=== PATIENT | male | born 1985 | race American Indian/Alaskan Native ===

== ENCOUNTER 2018-12-06 11:01 | Emergency (ER) | payer MEDICARE ==
--- NOTE | 2018-12-06 11:24 | Emergency Department Report ---
Blank Doc - Documentation Documentation: This is a 33-year-old male that presents with left wrist and hand pain s/p fall. This initial assessment/diagnostic orders/clinical plan/treatment(s) is/are subject to change based on patient's health status, clinical progression and re- assessment by fellow clinical providers in the ED. Further treatment and workup at subsequent clinical providers discretion. Patient/guardians urged not to elope from the ED as their condition may be serious if not clinically assessed a nd managed. Initial orders include: 1- Patient sent to [facility] for further evaluation and treatment 2- xrays
[2018-12-06 11:27] VITALS: BP 131/85
--- NOTE | 2018-12-06 12:42 | XRay Report ---
Left wrist, 4 views INDICATION: Left wrist pain after fall. COMPARISON: None. IMPRESSION: No acute osseous or soft tissue abnormality. No significant DJD. Left hand, 3 views INDICATION: Left hand pain after fall. COMPARISON: None. IMPRESSION: No acute osseous or soft tissue abnormality. No significant DJD. Signer Name: Sami Moreno Jr, MD Signed: 12/06/2018 12:38 PM Workstation Name: [id number]
[2018-12-06 12:58] LABS: Hematocrit 34.9 % (35.5-45.6); Hemoglobin 11.5 gm/dl (11.8-15.2); Mean Corpuscular HGB Conc 33 % (32-34); Mean Corpuscular Volume 89 fl (84-94); Platelet Count 207 K/mm3 (140-440); Red Blood Count 3.95 M/mm3 (3.65-5.03)
[2018-12-06 13:28] LABS: BUN/Creatinine Ratio 9; Blood Urea Nitrogen 10 mg/dL (9-20); Calcium 10.1 mg/dL (8.4-10.2); Hemolysis Index 23
[2018-12-06 15:22] LABS: Basophils % (Manual) 0 % (0.0-1.8); Total Cells Counted 100
[2018-12-06 15:25] LABS: Anisocytosis Few; Platelet Estimate Consistent w Auto
--- NOTE | 2018-12-06 17:10 | Emergency Department Report ---
ED Psych HPI - General Chief Complaint: Psych Stated Complaint: MED REFILL/LFT HAND PAIN Time Seen by Provider: 12/06/18 11:24 Source: patient Mode of arrival: Ambulatory - History of Present Illness Initial Comments: 33-year-old man I believe with chronic schizophrenia who states that his hand hurts. He offers no timeframe nor any history of injury. Then he states that he needs medicine for depression. When asked where he goes for his psychiatric care he does not provide any information. He is not agitated. He denies SI or HI. He is not having any sara delusions or evidence of hallucinosis. Complaint: other -: unknown History of same: Yes Quality: intermittent Associated Symptoms: denies other symptoms - Related Data Allergies Allergy/AdvReac Type Severity Reaction Status Date / Time No Known Allergies Allergy Unverified 12/06/18 11:14 ED Review of Systems ROS: Stated complaint: MED REFILL/LFT HAND PAIN Other details as noted in HPI Constitutional: denies: chills, fever Eyes: denies: eye pain, eye discharge, vision change ENT: denies: ear pain, throat pain Respiratory: denies: cough, shortness of breath, wheezing Cardiovascular: denies: chest pain, palpitations Endocrine: no symptoms reported Gastrointestinal: denies: abdominal pain, nausea, diarrhea Genitourinary: denies: urgency, dysuria Musculoskeletal: other (hand hurts). denies: back pain, joint swelling, arthralgia Skin: denies: rash, lesions Neurological: denies: headache, weakness, paresthesias Psychiatric: as per HPI. denies: anxiety, depression Hematological/Lymphatic: denies: easy bleeding, easy bruising ED Past Medical Hx - Past Medical History Hx Psychiatric Treatment: Yes Additional medical history: Denied HIV - Surgical History Past Surgical History?: No - Social History Smoking Status: Never Smoker Substance Use Type: None ED Physical Exam - General Limitations: Other (psychiatric disorder) General appearance: alert, in no apparent distress - Head Head exam: Present: atraumatic, normocephalic - Eye Eye exam: Present: normal appearance. Absent: scleral icterus - ENT ENT exam: Present: mucous membranes moist - Neck Neck exam: Present: normal inspection - Respiratory Respiratory exam: Present: normal lung sounds bilaterally. Absent: respiratory distress - Cardiovascular Cardiovascular Exam: Present: regular rate, normal rhythm. Absent: systolic murmur, diastolic murmur, rubs, gallop - GI/Abdominal GI/Abdominal exam: Present: soft, normal bowel sounds. Absent: distended, tenderness, guarding, rebound, rigid - Rectal Rectal exam: Present: deferred - Extremities Exam Extremities exam: Present: normal inspection, full ROM, tenderness, normal capillary refill, other (normal hand exam). Absent: pedal edema, joint swelling, calf tenderness - Back Exam Back exam: Present: normal inspection - Neurological Exam Neurological exam: Present: alert, oriented X3, CN II-XII intact, normal gait. Absent: motor sensory deficit - Psychiatric Psychiatric exam: Present: normal affect, normal mood - Skin Skin exam: Present: warm, dry, intact, normal color. Absent: rash ED Course Vital Signs 12/06/18 11:24 Temperature 97.7 F Pulse Rate 87 Respiratory 18 Rate Blood Pressure 131/85 O2 Sat by Pulse 98 Oximetry - Reevaluation(s) Reevaluation #1: Mental health counselor was consulted to further ascertain this patient's psychiatric condition. He did not meet involuntary confinement criteria. However he was never seen because he eloped. 12/06/18 17:10 ED Medical Decision Making - Lab Data Result diagrams: 12/06/18 12:26 12/06/18 12:26 Laboratory Results - last 24 hr 12/06/18 12/06/18 12/06/18 12:26 12:26 12:26 WBC 3.4 L RBC 3.95 Hgb 11.5 L Hct 34.9 L MCV 89 MCH 29 MCHC 33 RDW 14.0 Plt Count 207 Add Manual Diff Complete Total Counted 100 Seg Neutrophils % Motion Picture Film Examiner Seg Neuts % (Manual) 31.0 L Band Neutrophils % 0 Lymphocytes % (Manual) 57.0 H Reactive Lymphs % (Man) 0 Monocytes % (Manual) 10.0 H Eosinophils % (Manual) 2.0 Basophils % (Manual) 0 Metamyelocytes % 0 Myelocytes % 0 Promyelocytes % 0 Blast Cells % 0 Nucleated RBC % Not Reportable Seg Neutrophils # Man 1.1 L Band Neutrophils # 0.0 Lymphocytes # (Manual) 1.9 Abs React Lymphs (Man) 0.0 Monocytes # (Manual) 0.3 Eosinophils # (Manual) 0.1 Basophils # (Manual) 0.0 Metamyelocytes # 0.0 Myelocytes # 0.0 Promyelocytes # 0.0 Blast Cells # 0.0 WBC Morphology Not Reportable Hypersegmented Neuts Not Reportable Hyposegmented Neuts Not Reportable Hypogranular Neuts Not Reportable Smudge Cells Not Reportable Toxic Granulation Not Reportable Toxic Vacuolation Not Reportable Dohle Bodies Not Reportable Pelger-Huet Anomaly Not Reportable Louann Rods Not Reportable Platelet Estimate Consistent w auto Clumped Platelets Not Reportable Plt Clumps, EDTA Not Reportable Large Platelets Not Reportable Giant Platelets Not Reportable Platelet Satelliting Not Reportable Plt Morphology Comment Not Reportable RBC Morphology Not Reportable Dimorphic RBCs Not Reportable Polychromasia Not Reportable Hypochromasia Not Reportable Poikilocytosis Not Reportable Anisocytosis Few Microcytosis Not Reportable Macrocytosis Not Reportable Spherocytes Not Reportable Pappenheimer Bodies Not Reportable Sickle Cells Not Reportable Target Cells Not Reportable Tear Drop Cells Not Reportable Ovalocytes Not Reportable Helmet Cells Not Reportable Huffman-Plumwood Bodies Not Reportable Caro Rings Not Reportable Fran Cells Not Reportable Bite Cells Not Reportable Crenated Cell Not Reportable Elliptocytes Not Reportable Acanthocytes (Spur) Not Reportable Rouleaux Not Reportable Hemoglobin C Crystals Not Reportable Schistocytes Not Reportable Malaria parasites Not Reportable Alli Bodies Not Reportable Hem Pathologist Commnt No Sodium 138 Potassium 4.4 Chloride 102.3 Carbon Dioxide 24 Anion Gap 16 BUN 10 Creatinine 1.1 Estimated GFR > 60 BUN/Creatinine Ratio 9 Glucose 85 Calcium 10.1 Salicylates < 0.3 L Acetaminophen Plasma/Serum Alcohol 12/06/18 12/06/18 12:26 12:26 WBC RBC Hgb Hct MCV MCH MCHC RDW Plt Count Add Manual Diff Total Counted Seg Neutrophils % Seg Neuts % (Manual) Band Neutrophils % Lymphocytes % (Manual) Reactive Lymphs % (Man) Monocytes % (Manual) Eosinophils % (Manual) Basophils % (Manual) Metamyelocytes % Myelocytes % Promyelocytes % Blast Cells % Nucleated RBC % Seg Neutrophils # Man Band Neutrophils # Lymphocytes # (Manual) Abs React Lymphs (Man) Monocytes # (Manual) Eosinophils # (Manual) Basophils # (Manual) Metamyelocytes # Myelocytes # Promyelocytes # Blast Cells # WBC Morphology Hypersegmented Neuts Hyposegmented Neuts Hypogranular Neuts Smudge Cells Toxic Granulation Toxic Vacuolation Dohle Bodies Pelger-Huet Anomaly Louann Rods Platelet Estimate Clumped Platelets Plt Clumps, EDTA Large Platelets Giant Platelets Platelet Satelliting Plt Morphology Comment RBC Morphology Dimorphic RBCs Polychromasia Hypochromasia Poikilocytosis Anisocytosis Microcytosis Macrocytosis Spherocytes Pappenheimer Bodies Sickle Cells Target Cells Tear Drop Cells Ovalocytes Helmet Cells Huffman-Plumwood Bodies Caro Rings Fran Cells Bite Cells Crenated Cell Elliptocytes Acanthocytes (Spur) Rouleaux Hemoglobin C Crystals Schistocytes Malaria parasites Alli Bodies Hem Pathologist Commnt Sodium Potassium Chloride Carbon Dioxide Anion Gap BUN Creatinine Estimated GFR BUN/Creatinine Ratio Glucose Calcium Salicylates Acetaminophen < 5.0 L Plasma/Serum Alcohol < 0.01 Critical care attestation.: If time is entered above; I have spent that time in minutes in the direct care of this critically ill patient, excluding procedure time. ED Disposition Clinical Impression: Schizophrenia Qualifiers: Schizophrenia type: unspecified Qualified Code(s): F20.9 - Schizophrenia, unsp ecified Leukopenia Qualifiers: Leukopenia type: neutropenia Neutropenia type: unspecified Qualified Code(s): D70.9 - Neutropenia, unspecified Anemia Qualifiers: Anemia type: unspecified type Qualified Code(s): D64.9 - Anemia, unspecified Disposition: Z-07 ELOPED Is pt being admited?: No Does the pt Need Aspirin: No Condition: Stable Referrals: PRIMARY CAREMD [Referring] - 3-5 Days Time of Disposition: 17:10
== END 2018-12-06 14:52 | disposition left against medical advice (07) ==
LOC: ED 11:01
DX: M79.642 Pain in left hand (principal); F20.9 Schizophrenia, unspecified; D70.9 Neutropenia, unspecified; D64.9 Anemia, unspecified
CPT/HCPCS: 36415; 80048; 80320; 85007; 85025; 99283; G0480